=== PATIENT | male | born 1950 | race Caucasian/White ===

== ENCOUNTER 2017-07-17 08:49 | Day surgery (SDC) | payer OTHER ==
[2017-07-11 15:58] VITALS: BMI 26.4
[2017-07-17] MEDS ORDERED: TROPICAMIDE 1% OPHTH SOLN 15 ML BOTTLE ONE (09:15)
[2017-07-17] MEDS ORDERED: PHENYLEPHRINE 2.5% OPHTH SOLN 15 ML BOTTLE ONE (09:15)
[2017-07-17] MEDS ORDERED: GENTAMICIN SULFATE 0.3% OPHTHALMIC (EYE DROPS) 5ML BOTTLE ONE (09:15)
[2017-07-17] MEDS ORDERED: KETOROLAC TROMETHAMINE 0.5% 5 ML BOTTLE OPTHALMIC ONE (09:15)
[2017-07-17] MEDS ORDERED: CYCLOPENTOLATE HCL 1% OPHTH SOLN 2 ML BOTTLE ONE (09:15)
[2017-07-17] MEDS: GENTAMICIN SULFATE 0.3% OPHTHALMIC (EYE DROPS) 5ML BOTTLE OS SCH ×5 (09:30→09:50)
[2017-07-17] MEDS: PHENYLEPHRINE 2.5% OPHTH SOLN 15 ML BOTTLE OS SCH ×5 (09:30→09:50)
[2017-07-17] MEDS: KETOROLAC TROMETHAMINE 0.5% 5 ML BOTTLE OPTHALMIC OS SCH ×5 (09:30→09:50)
[2017-07-17] MEDS: TROPICAMIDE 1% OPHTH SOLN 15 ML BOTTLE OS SCH ×5 (09:30→09:50)
[2017-07-17] MEDS: CYCLOPENTOLATE HCL 1% OPHTH SOLN 2 ML BOTTLE OS SCH ×5 (09:30→09:50)
[2017-07-17] MEDS ORDERED: MIDAZOLAM HCL 2 MG/2 ML SINGLE DOSE VIAL ONE ×2 (10:06→11:09)
[2017-07-17] MEDS ORDERED: TETRACAINE 0.5% OPHTH SOLN 2 ML BOTTLE ONE (10:29)
[2017-07-17] MEDS ORDERED: ACETYLCHOLINE 1:100 INTRA-OCUL 20 MG/2 ML KIT ONE (10:29)
[2017-07-17] MEDS ORDERED: NEO/POLYMYX B SULF/DEXAMETH OPHTHALMIC 5ML BOTTLE ONE (10:29)
[2017-07-17] MEDS ORDERED: EPI-SHUGARCAINE (EPINEPHRINE 0.025% & LIDOCAINE-PF 0.75%) 4ML ONE (10:29)
[2017-07-17] MEDS ORDERED: ACETAMINOPHEN 325 MG TABLET (FP) PO PRN (11:51)
[2017-07-17 12:40] VITALS: BP 120/75; PULSE 64; TEMP 97.9
--- NOTE | 2017-07-17 15:34 | OP ---
DATE OF OPERATION: 07/17/2017 PREOPERATIVE DIAGNOSIS: Cataract, left eye. POSTOPERATIVE DIAGNOSIS: Cataract, left eye. PROCEDURE: Cataract extraction via phacoemulsification with insertion of posterior chamber Toric lens implant, left eye. SURGEON: Tae Damian MD INTENSIVE CARE UNIT REGISTERED NURSE: Katie Lux MD ANESTHESIA: Topical with sedation. ESTIMATED BLOOD LOSS: Less than 1 mL. COMPLICATIONS: None. SPECIMENS: None. DESCRIPTION OF PROCEDURE: The patient was identified in the holding area. After all risks, benefits, and alternatives were explained to the patient, informed consent was obtained. The left eye was marked with a marking pen. The patient then entered the operating room on an eye stretcher. After a formal timeout was performed, tetracaine eye drops were instilled onto the left eye, and the left eye was properly marked for the Toric lens implant. The left eye was then prepped and draped in usual sterile fashion. An eyelid speculum was placed beneath the eyelids of the left eye. An inferotemporal paracentesis incision was created using a 15-degree blade. Topical anesthesia was achieved using preservative-free epinephrine and preservative-free lidocaine intracamerally. Viscoelastic was injected into the anterior chamber. A 2.4-mm keratome blade was then used to make a superotemporal incision. Bent cystotome and Utrata forceps were then used to create a 360-degree, continuous curvilinear capsulorrhexis. Hydrodissection was performed using balanced saline solution on a cannula. Phacoemulsification was introduced to disassemble and remove the nucleus in its entirety. Irrigation/aspiration was then used to remove any remaining cortical material from the eye. The capsular bag was reformed using viscoelastic. An Fazal model [id number] with a power of 16.5 diopters, was inspected and found to be defect free. It was then loaded into the cartridge. The Toric axis was then marked using marking pen and marking instruments, and it was found to be 83 degrees. the Toric lens was then injected into the capsular bag without complication. Irrigation/aspiration was then used to remove any remaining viscoelastic from the eye. The axis was then rotated of the Toric lens to line up with the 83-degree axis that was surgically planned preoperatively. Topical and intracameral Miochol and Miostat were then injected into the anterior chamber, and the pupil came down and was round. All wounds were hydrated with balanced saline solution and noted to be watertight. The anterior chamber was deep. The lens was perfectly centered in the capsular bag with the Toric lens axis at the 83-degree meridian and there was red reflex present and the eye had an adequate pressure. Topical antibiotic eye drops and ointment were then administered to the left eye. The eyelid speculum was removed from the left eye. The left eye was patched and shielded. The patient tolerated the procedure well and left the operating room in stable condition to follow up in the eye clinic tomorrow morning at 9:00. TAE DAMIAN M.D. [id number]
== END 2017-07-17 12:49 | disposition home or self-care (01) ==
LOC: FASU 08:49
PROVIDERS: ATTEND Ophthalmology
PROC: 08RK3JZ Replacement of Left Lens with Synthetic Substitute, Percutaneous Approach (ICD-10-PCS; principal; 2017-07-17 10:30)
DX: H26.9 Unspecified cataract (principal)

== ENCOUNTER 2018-11-26 08:34 | Day surgery (SDC) | payer OTHER ==
[2018-11-25 09:47] VITALS: BMI 25.7
[2018-11-26] MEDS ORDERED: KETOROLAC TROMETHAMINE 0.5% EYE DROP 1 DROP DROPS ONE (09:02)
[2018-11-26] MEDS ORDERED: OFLOXACIN 0.3% OPHTHALMIC SOLUTION 5 ML BOTTLE ONE (09:02)
[2018-11-26] MEDS ORDERED: CYCLOPENTOLATE HCL 1% OPHTH SOLN 2 ML BOTTLE ONE (09:02)
[2018-11-26] MEDS ORDERED: TROPICAMIDE 1% OPHTH SOLN 15 ML BOTTLE ONE (09:02)
[2018-11-26] MEDS ORDERED: PHENYLEPHRINE 2.5% OPHTH SOLN 15 ML BOTTLE ONE (09:02)
[2018-11-26] MEDS: CYCLOPENTOLATE HCL 1% OPHTH SOLN 2 ML BOTTLE OD SCH ×5 (09:30→09:50)
[2018-11-26] MEDS: KETOROLAC TROMETHAMINE 0.5% EYE DROP 1 DROP DROPS OD SCH ×5 (09:30→09:50)
[2018-11-26] MEDS: TROPICAMIDE 1% OPHTH SOLN 15 ML BOTTLE OD SCH ×5 (09:30→09:50)
[2018-11-26] MEDS: OFLOXACIN 0.3% OPHTHALMIC SOLUTION 5 ML BOTTLE OD SCH ×5 (09:30→09:50)
[2018-11-26] MEDS: PHENYLEPHRINE 2.5% OPHTH SOLN 15 ML BOTTLE OD SCH ×5 (09:30→09:50)
[2018-11-26] MEDS ORDERED: MIDAZOLAM HCL 2 MG/2 ML SINGLE DOSE VIAL ONE (10:08)
[2018-11-26] MEDS ORDERED: EPI-SHUGARCAINE (EPINEPHRINE 0.025% & LIDOCAINE-PF 0.75%) 4ML ONE (10:23)
[2018-11-26] MEDS ORDERED: ACETYLCHOLINE 1:100 INTRA-OCUL 20 MG/2 ML KIT ONE (10:24)
[2018-11-26] MEDS ORDERED: POVIDONE-IODINE 5% OPHTHALMIC PREP 30 ML SOLUTION ONE (10:24)
[2018-11-26] MEDS ORDERED: ACETAMINOPHEN 325 MG TABLET (FP) PO PRN (11:50)
[2018-11-26 12:04] VITALS: TEMP 97.8
[2018-11-26 12:28] VITALS: BP 104/57; PULSE 53
--- NOTE | 2018-11-26 15:19 | EKG ---
Test Reason : Blood Pressure : / mmHG Vent. Rate : 055 BPM Atrial Rate : 055 BPM P-R Int : 194 ms QRS Dur : 128 ms QT Int : 480 ms P-R-T Axes : 072 025 043 degrees QTc Int : 459 ms SINUS BRADYCARDIA NON-SPECIFIC INTRA-VENTRICULAR CONDUCTION BLOCK ABNORMAL ECG NO PREVIOUS ECGS AVAILABLE Confirmed by MD Rolando, Felipe ([id number]) on 11/26/2018 3:18:43 PM Referred By: Tae Hassan Confirmed By:Felipe Marshall MD
--- NOTE | 2018-11-26 17:29 | OP ---
DATE OF OPERATION: 11/26/2018 AGE: [age] years old. SEX: Male. PREOPERATIVE DIAGNOSIS: Cataract, right eye. POSTOPERATIVE DIAGNOSIS: Cataract, right eye. PROCEDURE: Cataract extraction via phacoemulsification with insertion of posterior chamber lens implant, right eye, toric lens. SURGEON: Tae Hassan MD SPORTS PHYSIOLOGIST: Katie Lux MD ANESTHESIA: Topical with sedation. ESTIMATED BLOOD LOSS: Less than 1 mL. COMPLICATIONS: None. SPECIMENS: None. PROCEDURE: The patient was identified in the holding area. After all the risks, benefits and alternatives were explained to the patient, informed consent was obtained. The right eye was marked with a marking pen. The patient then entered the operating room on an eye stretcher. After a formal timeout was performed, topical tetracaine eyedrops were instilled onto the right eye. The patient was instructed to sit up and look straight ahead and the right eye was marked for the cardinal axis of astigmatism using a toric bubble marker and a toric marking pen. The patient was prepped and draped in the usual sterile fashion for the right eye. An eyelid speculum was placed beneath the eyelids of the right eye. Then the axis of astigmatism was marked onto the right eye, which was noted to be around 85 degrees. Then, a supratemporal paracentesis incision was created using a 15-degree blade. The axis of astigmatism of note was marked using a toric marking pen and a toric dial onto the cornea. Then preservative-free epinephrine and preservative-free lidocaine was injected into the anterior chamber. Viscoelastic was then injected into the anterior chamber. A 2.4-mm keratome blade was then used to make an infratemporal incision. A 360-degree continuous curvilinear capsulorrhexis was then created using bent cystotome and Utrata forceps. Hydrodissection was performed using balanced saline solution on a cannula. Phacoemulsification was introduced to disassemble and remove the nucleus in its entirety. Irrigation/aspiration was then used to remove any remaining cortical material from the eye. The capsular bag was re-formed using viscoelastic. An Fazal model [id number] with a power of 16.0 diopters, serial number [id number] was inspected and found to be defect free and injected into the capsular bag. Irrigation/aspiration was then used to remove any remaining viscoelastic from the eye including posterior to the optic. The intraocular lens was then rotated so that the axis of astigmatism on the optic matched the axis of astigmatism on the cornea, which was noted to be between 80 and 85 degrees. Then intracameral injection of Miochol was then administered and the pupil came down and was round. Of note, the main wound was found to be leaking after it was adequately hydrated, thus a 10-0 interrupted nylon suture was placed with the knot buried and the leak stopped. There was a red reflex present. The anterior chamber was deep. The lens was perfectly centered with the axis of astigmatism between 80 and 85 degrees and there was no leak at the wounds. Topical antibiotic eyedrops and ointment were then administered to the right eye. The eyelid speculum was removed from the right eye. The right eye was shielded. The patient tolerated the procedure well and left the operating room in stable condition, to follow up in the eye clinic the following morning at 10. Jaguar [id number]
== END 2018-11-26 12:35 | disposition home or self-care (01) ==
LOC: FASU 08:34
PROVIDERS: ATTEND Ophthalmology
PROC: 08RJ3JZ Replacement of Right Lens with Synthetic Substitute, Percutaneous Approach (ICD-10-PCS; principal; 2018-11-26 11:08)
DX: H26.9 Unspecified cataract (principal)
CPT/HCPCS: 93005